=== PATIENT | male | born 1985 | race Caucasian/White ===

== ENCOUNTER → 2022-09-19 12:11 | Outpatient (CLI) | payer OTHER, SELFPAY ==
--- NOTE | 2022-09-19 | CA_ITS ---
APPROVED REPORT Exam: Pharmacologic Technologist: Shell Eldridge, Ht: 5 ft 7 in Wt: 220 lbs BSA: 2.11 m2 HR: 59 bpm BP: 133/96 mmHg Rhythm: NSR, T wave abns inferiorly Indications: Angina, CAD Medical History Medical History: HTN, Hyperlipidemia Medications: Amlodipine,,,,, Lisinopril,,,,, Aspirin,,,,, Atorvastatin,,,,, Carvedilol,,,,, Prednisone,,,,, Nitroglycerin,,,,, Isosorbide Mononitrate ER,,,,, Cardiac Risk Factors: HTN, Hyperlipidemia, FHX of CAD, Smoking Stress Test Details Test: LEXISCAN HR Resting HR: 61 bpm Max Heart Rate (APMHR): 184.957961 bpm Max HR Achieved: 88 bpm Target HR (85% APMHR): 156.994145 bpm % of APMHR: 47.83 Recovery HR: 71 bpm BP Resting BP: 133/96 mmHg Max BP: 146/91 mmHg Recovery BP: 143.0/93.0 mmHg ECG Resting ECG: NSR, T wave abns inferiorly Clinical Exercise duration: 04:01 min Highest Stage Achieved: Exercise capacity: 1.0 METs Stress ECG Conclusion During lexiscan pt experinced mild SOA, light headedness. No arrhythmias noted. No significant changes. Non diagnnostic. Myoview images reported separately. Test Summary REST . . . . . . . Sitting REST 03:59 . . 61 . 133/ 96 . . Stage 1 01:00 . . 82 . . . . Stage 2 01:00 . . 87 . . . . Stage 3 01:00 . . 82 . 138/ 91 . . Stage 4 01:00 . . 75 . 146/ 91 . . Stage 4 01:01 . . 75 . 146/ 91 . Stop exercise at 04:01 RECOVERY 01:00 . . 71 . . . . RECOVERY 02:00 . . 71 . 143/ 95 . . RECOVERY 03:00 . . 67 . 140/ 90 . . RECOVERY 03:33 . . 79 . 130/ 88 . . Electronically signed by : Andrea Barkley MD 09/20/2022 08:37:12
--- NOTE | 2022-09-19 12:11 | NM_ITS ---
APPROVED REPORT Exam: Nuclear Stress Test Indication: chest pain Patient Location: Outpatient Stress Tech: Shell AYALA Tech:Ladi Costa SHARONYocasta RT(R)(N) Ht: 5 ft 7 in Wt: 215 lbs HR: 61 bpm BP: 133/96 mmHg BSA: 2.09 m2 TID: 1.24 BMI: 33.6 Procedure: Patient received 0.4 mg of intravenous Lexiscan, resting heart rate 61 bpm, resting blood pressure 133/96 mmHg, with Lexiscan maximum heart rate achieved was 88 bpm which is 85 % of the maximum predicted heart rate and blood pressure was 146/91 mmHg. With Lexiscan, patient denied any complaint of chest pain. Electrocardiogram Resting electrocardiogram shows sinus rhythm nonspecific ST-T changes, with Lexiscan there is less than 1.[address] segment depression noted from the baseline EKG. The EKG portion of the Lexiscan is nondiagnostic. Cardiac Stress and Resting SPECT Images: Cardiac Stress and Resting SPECT images were obtained using technetium 99m Myoview 32.9 mCi stress and 10.32 mCi at rest. Gated SPECT analysis of segmental wall motion and calculation of the ejection fraction also done. Prone images were also obtained. Cardiac prone images show uniform myocardial activity without segmental perfusion abnormality, computer derived ejection fraction is 49% with no regional wall motion abnormality, right ventricle is normal size and contractility. Conclusion: 1. The EKG portion of the Lexiscan is nondiagnostic. 2. No scintigraphic evidence of reversible ischemia seen, computer derived ejection fraction is 49% with no regional wall motion abnormality, right ventricle is normal size and contractility. 3. Normal Lexiscan Myoview study. Electronically signed by : Andrea Barkley MD 09/20/2022 08:39:11
== END ==
PROVIDERS: PCP Physician Assistant; Visit Provider Physician Assistant
DX: I20.8 Other forms of angina pectoris (principal); I10 Essential (primary) hypertension; E78.5 Hyperlipidemia, unspecified; R73.03 Prediabetes; Z72.0 Tobacco use; Z82.49 Family history of ischemic heart disease and other diseases of the circulatory system
CPT/HCPCS: 78452; 93017; A9502; J2785

== ENCOUNTER 2022-09-26 07:45 | Day surgery (SDC) | payer OTHER, SELFPAY ==
[2022-09-26] VITALS (12 sets, daily range): BP systolic 106–138; BP diastolic 64–90; PULSE 55–80; RESP 18–20; O2SAT 88–100; BMI 35.0; BMI 34.2
--- NOTE | 2022-09-26 08:14 | IR_ITS ---
APPROVED REPORT Patient Location: Outpatient Rehabilitation Inspector: SCHUYLER Ta RT (R) PROCEDURES Bilateral selective renal angiography INDICATION Abnormal renal duplex suggesting greater than 60% right renal artery stenosis, Suspected renovascular hypertension Informed consent was obtained prior to the procedure. COMPLICATIONS None Estimated Blood Loss: Less than 10 ML TECHNIQUE 1% lidocaine used to anesthetize the right femoral groin. The right femoral artery was accessed via the Seldinger technique. A 4 Gabonese sheath was placed in the right femoral artery. The JR4 catheter was used to selectively intubate each renal artery. At the end of the diagnostic angiogram the patient was transferred to the postop holding area in stable condition for sheath removal. ANGIOGRAPHIC RESULTS Bilateral renal arteries are singular widely patent and normal IMPRESSION Normal bilateral renal arteries PLAN 1. Treatment of essential hypertension Electronically signed by : Estevan Elizondo MD 09/26/2022 10:31:37
[2022-09-26 08:37] LABS: Blood Urea Nitrogen 22 mg/dl (9-20); Calcium 9.2 mg/dl (8.4-10.2); Carbon Dioxide 27 mmol/L (22.0-30.0); Chloride 101 mmol/L (98-107); Creatinine Clearance Estimated 159 mL/min (50-200); Estimated Glomerular Filt Rate 95 ml/min (>60); GFR (African American) 116 ML/MIN (>60); Glucose 110 mg/dl (74-100); Sodium 137 mmol/L (136-145)
[2022-09-26 08:56] LABS: Basophils % 0.4 % (0.1-2.0); Eosinophils # 0.1 K/mm3 (0.0-0.4); Eosinophils % 1.1 % (0.1-12.0); Hematocrit 47.1 % (42.0-52.0); Hemoglobin 15.6 g/dL (14.1-18.0); Lymphocytes # 1.5 K/mm3 (0.7-4.5); Lymphocytes % 17.7 % (10-50); Mean Corpuscular HGB Conc 33.1 g/dL (31.8-35.4); Mean Corpuscular Volume 87.4 fl (80-94); Mean Platelet Volume 7.6 fl (7.4-10.4); Monocytes # 0.5 K/mm3 (0.1-1.0); Monocytes % 6.2 % (1.7-9.3); Neutrophils # 6.3 K/mm3 (1.8-7.8); Neutrophils % 74.5 % (37.0-80.0); Platelet Count 369 K/mm3 (142-424); Red Blood Count 5.39 M/mm3 (4.60-6.20); Red Cell Distribution Width 13.9 % (11.5-17.5); White Blood Count 8.4 K/mm3 (4.8-10.8)
== END 2022-09-26 13:43 | disposition home or self-care (01) ==
LOC: CATHLAB 07:46
PROVIDERS: PCP Physician Assistant; Visit Provider Internal Medicine
DX: I70.1 Atherosclerosis of renal artery (principal); I10 Essential (primary) hypertension; Z79.899 Other long term (current) drug therapy; Z82.49 Family history of ischemic heart disease and other diseases of the circulatory system; I25.118 Atherosclerotic heart disease of native coronary artery with other forms of angina pectoris; F17.210 Nicotine dependence, cigarettes, uncomplicated; R73.03 Prediabetes
CPT/HCPCS: 36252; 80048; 85025; 99152; C1725; C1769; C1894; J1644; Q9967

== ENCOUNTER → 2022-09-30 11:13 | Outpatient (CLI) | payer OTHER, SELFPAY | PROVIDERS: PCP Physician Assistant; Visit Provider Nurse Practitioner | DX: I25.10 Atherosclerotic heart disease of native coronary artery without angina pectoris (principal) ==

== ENCOUNTER 2023-11-05 18:00 | Outpatient (CLI) | payer SELFPAY ==
[2023-11-05 18:47] LABS: Basophils % 0.4 % (0.1-2.0); Eosinophils # 0.1 K/mm3 (0.0-0.4); Eosinophils % 1.2 % (0.1-12.0); Hematocrit 51.6 % (42.0-52.0); Hemoglobin 16.6 g/dL (14.1-18.0); Lymphocytes # 1.5 K/mm3 (0.7-4.5); Lymphocytes % 20.4 % (10-50); Mean Corpuscular HGB Conc 32.2 g/dL (31.8-35.4); Mean Corpuscular Hemoglobin 29.6 pg (27.0-31.2); Mean Corpuscular Volume 91.9 fl (80-94); Monocytes # 0.5 K/mm3 (0.1-1.0); Monocytes % 7.1 % (1.7-9.3); Neutrophils # 5.1 K/mm3 (1.8-7.8); Platelet Count 335 K/mm3 (142-424); Red Blood Count 5.61 M/mm3 (4.60-6.20); Red Cell Distribution Width 14.3 % (11.5-17.5); White Blood Count 7.2 K/mm3 (4.8-10.8)
[2023-11-05 18:59] LABS: Alanine Aminotransferase 41 U/L (12-78); Albumin Level 4.6 g/dl (3.5-5.0); Albumin/Globulin Ratio 1.6 (1.1-1.8); Alkaline Phosphatase 75 U/L (38-126); Aspartate Amino Transferase 38 U/L (17-59); Bilirubin,Total 1.1 mg/dl (0.2-1.3); Blood Urea Nitrogen 16 mg/dl (9-20); Calcium 9.9 mg/dl (8.4-10.2); Carbon Dioxide 26 mmol/L (22.0-30.0); Chloride 105 mmol/L (98-107); Cholesterol 143 mg/dl (140-200); Estimated Glomerular Filt Rate 95 ml/min (>60); GFR (African American) 115 ML/MIN (>60); Globulin 2.8 g/dL (1.3-3.2); Glucose 105 mg/dl (74-100); HDL Cholesterol 24 mg/dl (40-60); Sodium 140 mmol/L (136-145); Total Protein,Serum 7.4 g/dl (6.3-8.2); Triglycerides 232 mg/dl (30-150); VLDL Cholesterol 46 mg/dL (0-40)
[2023-11-05 19:28] LABS: Hemoglobin A1C 5.9 % (4.0-6.0)
[2023-11-05 19:29] LABS: Prostate Specific Ag Screen 0.5 ng/ml (0.0-4.0)
== END 2023-11-05 23:59 | disposition home or self-care (01) ==
LOC: LAB.DROPOF 11-06 09:53
PROVIDERS: PCP Family Medicine; Visit Provider Family Medicine
DX: R73.03 Prediabetes (principal); I73.9 Peripheral vascular disease, unspecified; E78.1 Pure hyperglyceridemia; Z12.5 Encounter for screening for malignant neoplasm of prostate
CPT/HCPCS: 80053; 80061; 83036; 85025; G0103

== ENCOUNTER 2023-11-07 09:55 | Outpatient (CLI) | payer SELFPAY ==
[2023-11-11 00:09] LABS: Neisseria gonorrhoeae, NAA Negative (Negative)
== END 2023-11-07 23:59 | disposition home or self-care (01) ==
LOC: LAB.DROPOF 09:56
PROVIDERS: PCP Family Medicine; Visit Provider Family Medicine
DX: R82.90 Unspecified abnormal findings in urine (principal); R30.0 Dysuria; R35.0 Frequency of micturition; R33.9 Retention of urine, unspecified; N23 Unspecified renal colic
CPT/HCPCS: 87210; 87491; 87591